=== PATIENT | male | born 1970 | race Caucasian/White ===

== ENCOUNTER → 2019-08-02 | Outpatient (CLI) | payer BC ==
--- NOTE | 2019-08-02 09:00 | Diagnostic Imaging Report ---
PROCEDURE: CT urinary tract, rule out kidney stone. TECHNIQUE: Multiple contiguous axial images were obtained through the abdomen and pelvis without the use of intravenous contrast. Auto Exposure Controls were utilized during the CT exam to meet ALARA standards for radiation dose reduction. All CT scans use one or more of the following dose optimizing techniques: automated exposure control, MA and/or KvP adjustment based on patient size and exam type or iterative reconstruction. INDICATION: Hematuria for five days. Patient has history of kidney stones. COMPARISON: No prior studies are available for comparison. FINDINGS: The lung bases are clear. The liver demonstrates diffuse low density consistent with hepatic steatosis. No discrete liver mass is identified. The gallbladder is unremarkable. No biliary ductal dilatation is identified. The pancreas and spleen are unremarkable. No adrenal mass is detected. The right kidney is unremarkable. Left kidney contains a nonobstructing calculus in the mid region measuring 5 mm. In addition, there is a 4 mm calculus at the left UPJ. No significant hydronephrosis is identified. Bladder is decompressed. No ureteral or bladder calculi are seen. The aorta is non-aneurysmal. The small and large bowel loops are normal caliber. No obstruction is seen. There is no free fluid in the abdomen or pelvis. Prostate is mildly prominent. No definite lymphadenopathy in the abdomen or pelvis is seen. IMPRESSION: 1. Hepatic steatosis. 2. Nonobstructing left renal calculus. There is also a 4 mm calculus at the left UPJ without significant hydronephrosis. No other urinary tract calculi are detected. Dictated by: Dictated on workstation # [id number]
== END ==
LOC: RAD FS 08:02
PROVIDERS: ATTEND Family Medicine
DX: N20.0 Calculus of kidney (principal); N20.1 Calculus of ureter; K76.0 Fatty (change of) liver, not elsewhere classified
CPT/HCPCS: 74176

== ENCOUNTER 2019-10-25 22:57 | Emergency (ER) | payer BC ==
[~2019-10-25] VITALS: Ht 187.9 cm; Wt 95.4 kg
[2019-10-25 23:41] LABS: BACTERIA,URINE NEGATIVE /HPF; BILIRUBIN,URINE NEGATIVE (NEGATIVE); CLARITY,URINE CLOUDY; COLOR,URINE RED; GLUCOSE, URINE (UA) NEGATIVE (NEGATIVE); KETONES,URINE NEGATIVE (NEGATIVE); LEUKOCYTE ESTERASE ,URINE TRACE (NEGATIVE); NITRITE,URINE NEGATIVE (NEGATIVE); PH,URINE 6.5 (5-9); PROTEIN,URINE TRACE (NEGATIVE); RBC,URINE TNTC /HPF
[2019-10-25] MEDS ORDERED: KETOROLAC 30 MG/ML VIAL IVP ONE (23:45)
[2019-10-25] MEDS ORDERED: ONDANSETRON 4 MG/2 ML (SDV) Z0FRAN IVP ONE (23:45)
[2019-10-25] MEDS ORDERED: NS IV 1000 ML 1,000 ML IV SCH (23:45)
[2019-10-25 23:58] LABS: BASOPHILS # (AUTO) 0.1 10^3/uL (0.0-0.1); BASOPHILS % (AUTO) 1 % (0-10); EOSINOPHILS # (AUTO) 0.4 10^3/uL (0.0-0.3); EOSINOPHILS % (AUTO) 5 % (0-10); HEMATOCRIT 42 % (40-54); LYMPHOCYTES # (AUTO) 2.8 X 10^3 (1.0-4.0); LYMPHOCYTES % (AUTO) 38 % (12-44); MEAN CORPUSCULAR HEMOGLOBIN 33 PG (25-34); MEAN CORPUSCULAR HGB CONC 36 G/DL (32-36); MEAN CORPUSCULAR VOLUME 91 FL (80-99); MEAN PLATELET VOLUME 9.1 FL (7.4-10.4); MONOCYTES # (AUTO) 0.7 X 10^3 (0.0-1.0); MONOCYTES % (AUTO) 10 % (0-12); NEUTROPHILS # (AUTO) 3.5 X 10^3 (1.8-7.8); NEUTROPHILS % (AUTO) 46 % (42-75); PLATELET COUNT 275 10^3/uL (130-400); RED CELL DISTRIBUTION WIDTH 11.9 % (10.0-14.5); WHITE BLOOD COUNT 7.5 10^3/uL (4.3-11.0)
[2019-10-26 00:16] LABS: ALANINE AMINOTRANSFERASE 40 U/L (0-55); ALBUMIN 4.3 GM/DL (3.2-4.5); ALKALINE PHOSPHATASE 63 U/L (40-136); BILIRUBIN,TOTAL 0.3 MG/DL (0.1-1.0); BUN/CREATININE RATIO 12; CALCIUM 9.1 MG/DL (8.5-10.1); CARBON DIOXIDE 24 MMOL/L (21-32); CHLORIDE 105 MMOL/L (98-107); CREATININE SERUM 1.22 MG/DL (0.60-1.30); GFR ESTIMATED > 60; GLUCOSE 149 MG/DL (70-105); SODIUM 142 MMOL/L (135-145); TOTAL PROTEIN 6.8 GM/DL (6.4-8.2)
--- OUTSIDE RECORDS SUMMARY | 2019-10-26 00:30 | XMS REPORT | Continuity of Care Document ---
Author Organization Unknown Address Unknown Phone Unavailable Allergies Active Description Code Type Severity Reaction Onset Reported/Identified Relationship to Patient Clinical Status Yes No Known Drug Allergies [id number] Drug Allergy Unknown N/A 10/25/2019 Medications There is no data. Problems Date Dx Coded Attending Type Code Diagnosis Diagnosed By 08/05/2019 COLUMBA MAY, DUNCAN Hahn Ot K76.0 FATTY (CHANGE OF) LIVER, NOT ELSEWHERE C 08/05/2019 COLUMBA MAY, DUNCAN Hahn Ot N20.0 CALCULUS OF KIDNEY 08/05/2019 DUNCAN WATERMAN MD Ot N20.1 CALCULUS OF URETER 08/19/2019 DUNCAN WATERMAN MD Ot K76.0 FATTY (CHANGE OF) LIVER, NOT ELSEWHERE C 08/19/2019 DUNCAN WATERMAN MD Ot N20.0 CALCULUS OF KIDNEY 08/19/2019 DUNCAN WATERMAN MD Ot N20.1 CALCULUS OF URETER Procedures There is no data. Results Test Result Range CULTURE, URINE - 07/29/19 00:00 CULTURE, URINE, ROUTINE SEE NOTE NRG UA W/ MICROSCOPY - 08/21/19 12:59 COLOR TNP NRG COMMENTS NRG CULTURE, URINE - 08/21/19 12:59 CULTURE, URINE, ROUTINE SEE NOTE NRG Complete urinalysis with reflex to cultu re - 10/25/19 23:20 Urine color determination RED NRG Urine clarity determination CLOUDY NR G Urine pH measurement by test strip 6.5 5-9 Specific gravity of urine by test strip 1.020 1.016-1.022 Urine protein assay by test strip, semi-quantitative TRACE NEGATIVE Urine glucose detection by automated test strip NE GATIVE NEGATIVE Erythrocytes detection in urine sediment by light micr oscopy 3+ NEGATIVE Urine ketones detection by automated test strip NE GATIVE NEGATIVE Urine nitrite detection by test strip NEGATIVE NEGATIVE Urine total bilirubin detection by test strip NEGA TIVE NEGATIVE Urine urobilinogen measurement by automated test strip (mass/volume) 0.2 mg/dL < = 1.0 Urine leukocyte esterase detection by dipstick TRA CE NEGATIVE Automated urine sediment erythrocyte cou nt by microscopy (number/high power field) TNTC NRG Automated urine sediment leukocyte count by microscopy (number/high power field) NONE NRG Bacteria detection in urine sediment by light microsco py NEGATIVE NRG Crystals detection in urine sediment by light microsco py NONE NRG Casts detection in urine sediment by light microscopy NONE NRG Mucus detection in urine sediment by light microscopy NEGATIVE NRG Complete urinalysis with reflex to culture YES NRG Complete blood count (CBC) with automate d white blood cell (WBC) differential - 10/25/19 23:50 Blood leukocytes automated count (number/volume) 7.5 10*3/uL 4.3-11.0 Blood erythrocytes automated count (number/volume) 4.61 10*6/uL 4.35-5.85 Venous blood hemoglobin measurement (mass/volume) 15.0 g/dL 13.3-17.7 Blood hematocrit (volume fraction) 42 % 40-54 Automated erythrocyte mean corpuscular volume 91 [ foz_us] 80-99 Automated erythrocyte mean corpuscular h emoglobin (mass per erythrocyte) 33 pg 25-34 Automated erythrocyte mean corpuscular h emoglobin concentration measurement (mass/volume) 36 g/dL 32-36 Automated erythrocyte distribution width ratio 11. 9 % 10.0- 14.5 Automated blood platelet count (count/volume) 275 10*3/uL 130-400 Automated blood platelet mean volume measurement 9.1 [foz_us] 7.4-10.4 Automated blood neutrophils/100 leukocytes 46 % 42-75 Automated blood lymphocytes/100 leukocytes 38 % 12-44 Blood monocytes/100 leukocytes 10 % 0-12 Automated blood eosinophils/100 leukocytes 5 % 0-10 Automated blood basophils/100 leukocytes 1 % 0-10 Blood neutrophils automated count (number/volume) 3.5 10*3 1.8-7.8 Blood lymphocytes automated count (number/volume) 2.8 10*3 1.0-4.0 Blood monocytes automated count (number/volume) 0. 7 10*3 0.0-1.0 Automated eosinophil count 0.4 10*3/uL 0 .0-0.3 Automated blood basophil count (count/volume) 0.1 10*3/uL 0.0-0.1 Comprehensive metabolic panel - 10/25/19 23:50 Serum or plasma sodium measurement (moles/volume) 142 mmol/L 135-145 Serum or plasma potassium measurement (moles/volume) 4.0 mmol/L 3.6-5.0 Serum or plasma chloride measurement (moles/volume) 105 mmol/L 98-107 Carbon dioxide 24 mmol/L 21-32 Serum or plasma anion gap determination (moles/volume) 13 mmol/L 5-14 Serum or plasma urea nitrogen measurement (mass/volume ) 15 mg/dL 7-18 Serum or plasma creatinine measurement (mass/volume) 1.22 mg/dL 0.60-1.30 Serum or plasma urea nitrogen/creatinine mass ratio 12 NRG Serum or plasma creatinine measurement w ith calculation of estimated glomerular filtration rate > NRG Serum or plasma glucose measurement (mass/volume) 149 mg/dL 70-105 Serum or plasma calcium measurement (mass/volume) 9.1 mg/dL 8.5-10.1 Serum or plasma total bilirubin measurement (mass/volu me) 0.3 mg/dL 0.1-1.0 Serum or plasma alkaline phosphatase topher surement (enzymatic activity/volume) 63 U/L 40-136 Serum or plasma aspartate aminotransfera se measurement (enzymatic activity/volume) 25 U/L 5-34 Serum or plasma alanine aminotransferase measurement (enzymatic activity/volume) 40 U/L 0-55 Serum or plasma protein measurement (mass/volume) 6.8 g/dL 6.4-8.2 Serum or plasma albumin measurement (mass/volume) 4.3 g/dL 3.2-4.5 CALCIUM CORRECTED 8.9 mg/dL 8.5-10.1 Encounters ACCT No. Visit Date/Time Discharge Status Pt. Type Provider Facility Loc./Unit Complaint [id number] 08/21/2019 11:00:00 08/21/2019 23:59: 59 CLS Outpatient DUNCAN WATERMAN [facility] [id number] 08/21/2019 11:00:00 Document Registration [id number] 07/29/2019 07:40:00 Document Registration [id number] 08/02/2019 08:02:00 019 23:59:59 CLS Outpatient DUNCAN WATERMAN MD, V [facility] RAD FS KIDNEY STONE [id number] 10/25/2019 22:58:[address] Emergency VICTORINO MAY, CAROL Hahn [facility] ER FS POSS KIDNEY STONES
--- NOTE | 2019-10-26 00:46 | ED Abdominal Pain ---
General Chief Complaint: Abdominal/GI Problems Stated Complaint: POSS KIDNEY STONES Nursing Triage Note: PT. REPORTED HE HAS HAD KIDNEY STONES IN THE PAST. TODAY HIS PAIN STARTED THIS EVENING AND HE HAS HAD BLOOD IN HIS URINE. Sepsis Screen: No Definite Risk History of Present Illness Date Seen by Provider: Oct 26, 2019 Time Seen by Provider: 23:43 Initial Comments Has been problem problems over the last several days seen blood in his urine this morning and then again later in the day has been pushing the fluids in an attempt to wash things through there areno known stones there and he's had problems with kidney stones in the past. Mild nausea no vomiting quite a lot of left flank pain some into the groin initially. No fever question of chills early this evening. Timing/Duration: 1 Week Severity/Quality: Moderate, Sharp, Stabbing Location: Flank (left) Radiation: Groin Activities at Onset: None Modifying Factors: Worsens With Breathing; Improves With Lying down; Worsens With Movement Associated Symptoms: No Chest Pain, No Fatigue, No Nausea/Vomiting Allergies and Home Medications Allergies Coded Allergies: No Known Drug Allergies (Unverified , 10/25/19) Patient Home Medication List Home Medication List Reviewed: Yes Review of Systems Review of Systems Constitutional: chills; No fever EENTM: No Nose Congestion, No Throat Pain Respiratory: Denies Cough, Denies Shortness of Air Cardiovascular: Denies Chest Pain, Denies Irregular Heart Rate Gastrointestinal: Denies Diarrhea; Nausea; Denies Vomiting Genitourinary: Denies Frequency; Hematuria; Denies Pain Musculoskeletal: No muscle pain, No muscle weakness Skin: No lesions, No rash Psychiatric/Neurological: Denies Headache, Denies Numbness, Denies Tingling Past Zbcrowm-Jbrrzd-Ohbvna Hx Past Med/Social Hx: Reviewed Nursing Past Med/Soc Hx Patient Social History Recent Foreign Travel: No Contact w/Someone Who Travel: No Recent Infectious Disease Expo: No Recent Hopitalizations: No Physical Abuse: No Sexual Abuse: No Mistreated: No Fear: No Seasonal Allergies Seasonal Allergies: No Past Medical History Surgeries: No Respiratory: No Cardiac: No Neurological: No Genitourinary: Yes Kidney Stones Gastrointestinal: No Musculoskeletal: No Endocrine: No HEENT: No Cancer: No Psychosocial: No Integumentary: No Blood Disorders: No Physical Exam Vital Signs Vital Signs - First Documented 10/25/19 23:30 Temp 36.7 Pulse 78 Resp 16 B/P (MAP) 169/105 (126) Pulse Ox 100 O2 Delivery Room Air Capillary Refill : Less Than 3 Seconds Height/Weight/BMI Height: '" Weight: lbs. oz. kg; 27.00 BMI Method: General Appearance: WD/WN, moderate distress HEENT: PERRL/EOMI, TMs normal, pharynx normal Neck: non-tender, full range of motion Respiratory: lungs clear, normal breath sounds Cardiovascular: regular rate, rhythm, no murmur Gastrointestinal: normal bowel sounds, soft; No tenderness Extremities: normal range of motion, normal inspection Neurologic/Psychiatric: no motor/sensory deficits, normal mood/affect, oriented x 3 Skin: normal color, warm/dry Progress/Results/Core Measures Results/Orders Lab Results Laboratory Tests Test 10/25/19 23:20 10/25/19 23:50 Range/Units Urine Color RED H Urine Clarity CLOUDY Urine pH 6.5 5-9 Urine Specific [place] 1.020 1.016-1.022 Urine Protein TRACE H NEGATIVE Urine Glucose (UA) NEGATIVE NEGATIVE Urine Ketones NEGATIVE NEGATIVE Urine Nitrite NEGATIVE NEGATIVE Urine Bilirubin NEGATIVE NEGATIVE Urine Urobilinogen 0.2 < = 1.0 MG/DL Urine Leukocyte Esterase TRACE H NEGATIVE Urine RBC (Auto) 3+ H NEGATIVE Urine RBC TNTC H /HPF Urine WBC NONE /HPF Urine Crystals NONE /LPF Urine Bacteria NEGATIVE /HPF Urine Casts NONE /LPF Urine Mucus NEGATIVE /LPF Urine Culture Indicated YES White Blood Count 7.5 4.3-11.0 10^3/uL Red Blood Count 4.61 4.35-5.85 10^6/uL Hemoglobin 15.0 13.3-17.7 G/DL Hematocrit 42 40-54 % Mean Corpuscular Volume 91 80-99 FL Mean Corpuscular Hemoglobin 33 25-34 PG Mean Corpuscular Hemoglobin Concent 36 32-36 G/DL Red Cell Distribution Width 11.9 10.0-14.5 % Platelet Count 275 130-400 10^3/uL Mean Platelet Volume 9.1 7.4-10.4 FL Neutrophils (%) (Auto) 46 42-75 % Lymphocytes (%) (Auto) 38 12-44 % Monocytes (%) (Auto) 10 0-12 % Eosinophils (%) (Auto) 5 0-10 % Basophils (%) (Auto) 1 0-10 % Neutrophils # (Auto) 3.5 1.8-7.8 X 10^3 Lymphocytes # (Auto) 2.8 1.0-4.0 X 10^3 Monocytes # (Auto) 0.7 0.0-1.0 X 10^3 Eosinophils # (Auto) 0.4 H 0.0-0.3 10^3/uL Basophils # (Auto) 0.1 0.0-0.1 10^3/uL Sodium Level 142 135-145 MMOL/L Potassium Level 4.0 3.6-5.0 MMOL/L Chloride Level 105 98-107 MMOL/L Carbon Dioxide Level 24 21-32 MMOL/L Anion Gap 13 5-14 MMOL/L Blood Urea Nitrogen 15 7-18 MG/DL Creatinine 1.22 0.60-1.30 MG/DL Estimat Glomerular Filtration Rate > 60 BUN/Creatinine Ratio 12 Glucose Level 149 H 70-105 MG/DL Calcium Level 9.1 8.5-10.1 MG/DL Corrected Calcium 8.9 8.5-10.1 MG/DL Total Bilirubin 0.3 0.1-1.0 MG/DL Aspartate Amino Transf (AST/SGOT) 25 5-34 U/L Alanine Aminotransferase (ALT/SGPT) 40 0-55 U/L Alkaline Phosphatase 63 40-136 U/L Total Protein 6.8 6.4-8.2 GM/DL Albumin 4.3 3.2-4.5 GM/DL My Orders Orders - CAROL GLEASON JR, MD Cbc With Automated Diff (10/25/19 23:32) Comprehensive Metabolic Panel (10/25/19 23:32) Urinalysis (10/25/19 23:32) Ct Abdomen/Pelvis Wo (10/25/19 23:32) Ns Iv 1000 Ml (Sodium Chloride 0.9%) (10/25/19 23:45) Ketorolac Injection (Toradol Injection) (10/25/19 23:45) Ondansetron Injection (Zofran Injectio (10/25/19 23:45) Urine Culture (10/25/19 23:20) Medications Given in ED Current Medications Medications Dose Ordered Sig/Raquel Route Start Time Stop Time Status Last Admin Dose Admin Ketorolac Tromethamine 30 mg ONCE ONCE IVP 10/25/19 23:45 10/25/19 23:46 DC 10/25/19 23:50 30 MG Ondansetron HCl 4 mg ONCE ONCE IVP 10/25/19 23:45 10/25/19 23:46 DC 10/25/19 23:50 4 MG Vital Signs/I&O 10/25/19 23:30 Temp 36.7 Pulse 78 Resp 16 B/P (MAP) 169/105 (126) Pulse Ox 100 O2 Delivery Room Air Blood Pressure Mean: 126 Progress Progress Note : Time: 01:27 Progress Note Discussed dual stones in the left ureter one stone is 6 x 8 and 1 stone is 4 x 6. At this point feel like they will not pass on their own but he is pain free today renal function is adequate discussed options with him at this time will give him some pain medicines and tamsulosin and send him home if the wheels come off and pain recurs will send him for urologic evaluation over the weekend if pain stays. He is to make an appointment on Monday for the urologist we'll send him to [facility]. Follow-up earlier if necessary Departure Impression Primary Impression: Kidney stone Disposition: HOME, SELF-CARE Condition: Stable Departure-Patient Inst. Referrals: [facility] CONNE[facility] MD Call for appointment Monday a.m. Patient Instructions: Kidney Stones in Adults Scripts Hydrocodone/Acetaminophen (Kermit 7.5-325 Tablet) 1 Each Tablet 1 TAB PO Q6H PRN for PAIN-MODERATE (5-7) MDD 6 TABS, #5 TAB Prov: CAROL GLEASON JR, MD 10/26/19 CAROL GLEASON JR, MD Oct 26, 2019 00:46
[2019-10-26 01:30] VITALS: BP 164/105
[2019-10-26] MEDS ORDERED: HYDR-4227 PO (01:32)
[2019-10-26] MEDS ORDERED: TMSL.4C PO (01:35)
[2019-10-26] MEDS ORDERED: TAMSULOSIN 0.4 MG (FLOMAX) CAP PO SCH (01:45)
[2019-10-26] MEDS ORDERED: RX-HYDROCODONE/APAP 5/325 MG #4 TAB PK PO PRN (01:45)
--- NOTE | 2019-10-26 07:33 | Diagnostic Imaging Report ---
PROCEDURE: CT abdomen and pelvis without contrast. TECHNIQUE: Multiple contiguous axial images were obtained through the abdomen and pelvis without the use of intravenous contrast. Auto Exposure Controls were utilized during the CT exam to meet ALARA standards for radiation dose reduction. INDICATION: Right flank pain. Compared with study 08/02/2019. At the L3-L4 disc space level there is a left ureteral calculus in axial dimension measuring 4.2 mm maximal with a cephalocaudal length of about 8 to 9 mm. More distally a 2nd left ureteral stone is at the level of the L5 inferior endplate measuring 4.1 mm in axial dimension with a longitudinal/cephalocaudal length of 6.5 mm. Beyond that level, the left ureter was decompressed proximally. There was a mild left hydroureteronephrosis and perinephric as well as periureteric edema. No urinoma or fluid collection. No radiodense intrarenal stone found. The right kidney is unobstructed and without stone. Hepatic steatosis is improved in severity when compared to the prior. There is no evidence for pancreatitis. Gallbladder decompressed. There is no stone or biliary dilatation. The remaining abdominal pelvic solid and hollow viscera are unremarkable. IMPRESSION: 1. Two left-sided ureteral stones, dimension and location above result in mild upstream left hydroureteronephrosis, no additional radiodense urolithiasis. 2. Interval reduction in magnitude of fatty infiltration of the liver with no biliary abnormality or acute pancreatic pathology. Dictated by: Dictated on workstation # [id number]
== END 2019-10-26 01:43 | disposition home or self-care (01) ==
LOC: EDUNIT# 22:57 → ER FS 22:58
DX: N20.0 Calculus of kidney (principal)
CPT/HCPCS: 36415; 74176; 80053; 81000; 85025; 87088; 96374; 96375

== ENCOUNTER 2019-11-03 14:50 | Emergency (ER) | payer BC ==
[~2019-11-03] VITALS: Ht 187.9 cm; Wt 95.5 kg
[~2019-11-03 14:50] MED LIST: HYDR-4227 PO; TMSL.4C PO
--- OUTSIDE RECORDS SUMMARY | 2019-11-03 14:55 | XMS REPORT | Continuity of Care Document ---
Author Organization Unknown Address Unknown Phone Unavailable Allergies Active Description Code Type Severity Reaction Onset Reported/Identified Relationship to Patient Clinical Status Yes No Known Medication Allergies Drug N/A N/A Yes No Known Drug Allergies [id number] Drug Allergy Unknown N/A 10/25/2019 Medications There is no data. Problems Date Dx Coded Attending Type Code Diagnosis Diagnosed By 08/05/2019 DUNCAN WATERMAN MD Ot K76.0 FATTY (CHANGE OF) LIVER, NOT ELSEWHERE C 08/05/2019 DUNCAN WATERMAN MD Ot N20.0 CALCULUS OF KIDNEY 08/05/2019 DUNCAN WATERMAN MD Ot N20.1 CALCULUS OF URETER 08/19/2019 DUNCAN WATERMAN MD Ot K76.0 FATTY (CHANGE OF) LIVER, NOT ELSEWHERE C 08/19/2019 DUNCAN WATERMAN MD Ot N20.0 CALCULUS OF KIDNEY 08/19/2019 DUNCAN WATERMAN MD Ot N20.1 CALCULUS OF URETER 10/28/2019 Yaneth Jacinto MD N2 0.0 Kidney stone 10/30/2019 CAROL GLEASON MD Ot N20.0 CALCULUS OF KIDNEY 10/30/2019 CAROL GLEASON MD Ot R10.9 UNSPECIFIED ABDOMINAL PAIN Procedures There is no data. Results Test [...] urinalysis with reflex to culture YES NRG Bacterial urine culture - 10/25/19 23:20 Bacterial urine culture NG NRG Complete blood count (CBC) with automate [...] Status Pt. Type Provider Facility Loc./Unit Complaint [id number] 08/21/2019 11:00:00 08/21/2019 23:59: 59 CLS Outpatient DUNCAN WATERMAN [facility] [id number] 08/21/2019 11:00:00 Document Registration [id number] 07/29/2019 07:40:00 Document Registration [id number] 10/29/2019 14:50:00 ACT Unknown Yaneth Jacinto MD [id number] 10/28/2019 14:25:53 0 18:52:00 DIS Outpatient BRUCE JACINTO [facility] Surgery KIdney Stone [id number] 10/25/2019 22:58:00 020 01:43:00 DIS Outpatient VICTORINO MAY, CAROL Jackman [facility] ER FS POSS KIDNEY STONES [id number] 08/02/2019 08:02:00 019 23:59:59 CLS Outpatient COLUMBA MAY, DUNCAN padilla [facility] RAD FS KIDNEY STONE
--- OUTSIDE RECORDS SUMMARY | 2019-11-03 14:55 | XMS REPORT | Clinical Summary ---
Author Author Admin, Thaddeus MARLEY Organization All Address Unknown Phone Unavailable Allergies, Adverse Reactions, Alerts Allergy Name Reaction Description Start Date Severity Status Pr ovider Allergies Unknown Conditions or Problems Problem Name Problem Code Onset Date Status Entry Date Provider Comment Standard Description Annotate Kidney stone 592.0 Active Yaneth Fisher MD Calculus of kidney Medication List Medication Instructions Start Date Stop Date Generic Name NDC Status Provider Patient Instruction Drug Treatment Unknown - unknown Procedures Code Procedure Name Date Entry Date Standard Desc ription CPT-64968 Abdomen, 1 view 13:08:50 CDT
--- OUTSIDE RECORDS SUMMARY | 2019-11-03 14:55 | XMS REPORT | Clinical Summary ---
Author Author Admin, Thaddeus MARLEY Organization All Address Unknown Phone Unavailable Allergies, Adverse Reactions, Alerts Allergy Name Reaction Description Start Date Severity Status Pr ovider Allergies Unknown Conditions or Problems Problem Name Problem Code Onset Date Status Entry Date Provider Comment Standard Description Annotate Problems Unknown Active Medication List Medication Instructions Start Date Stop Date Generic Name NDC Status Provider Patient Instruction Drug Treatment Unknown - unknown Procedures Code Procedure Name Date Entry Date Standard Desc ription CPT-75038 Abdomen, 1 view 13:08:50 CDT
--- OUTSIDE RECORDS SUMMARY | 2019-11-03 14:55 | XMS REPORT | Clinical Summary ---
[...] Name Date Entry Date Standard Desc ription CPT-81814 Abdomen, 1 view 13:08:50 CDT
--- OUTSIDE RECORDS SUMMARY | 2019-11-03 14:55 | XMS REPORT | Clinical Summary ---
[...] Name Date Entry Date Standard Desc ription CPT-83300 Abdomen, 1 view 13:08:50 CDT
--- OUTSIDE RECORDS SUMMARY | 2019-11-03 14:55 | XMS REPORT | Clinical Summary ---
[...] Name Date Entry Date Standard Desc ription CPT-51893 Abdomen, 1 view 13:08:50 CDT
--- NOTE | 2019-11-03 15:15 | ED Cardiac General ---
History of Present Illness General Chief Complaint: Chest Pain Stated Complaint: CHEST PAIN Source: patient Exam Limitations: no limitations History of Present Illness Date Seen by Provider: Nov 03, 2019 Time Seen by Provider: 14:55 Initial Comments 9-year-old male presents to the emergency room with chest pain for the past day. Patient reports pain started last night it was anterior chest wall with some sense of anxiety. Patient has a history of renal stones and had a ureteral stent placed. Patient was seen on October 24 in the [facility]. He presented with abdominal pain and was found to have ureteral lithiasis. Patient had a left ureteral stone 6 x 8 mm and was felt that this would not pass and the patient was scoped and had a ureteral vesicular stent placed. Patient does not believe his relationship between his chest pain and his ureteral stone. He has no prior cardiac history with the exception of hypertension. He does admit his father had his first UT at the age of 60. Patient denies any pulmonary or GI problems. He has given informed consent for diagnostic and therapeutic services. EKG shows a sinus rhythm with abnormal R- wave progression with transition left ventricular hypertrophy with secondary repolarization abnormality also seen in the lateral leads. Timing/Duration: 24 hours Severity: moderate Location: substernal, central (without radiation) Activities at Onset: activity Prior CP/Workup: no prior chest pain, no prior cardiac workup (recently diagnosed with left ureteral stones and ureteral vesicular stent has been placed patient tolerated the anesthesia without difficulty. Miss eating large amounts of sodium recently with him) NTG SL HAIR BOILER OPERATOR: No (does not present with classic angina) ASA po HAIR BOILER OPERATOR: No (does not present with cla) Associated Systoms: Chest Pain Allergies and Home Medications Allergies Coded Allergies: No Known Drug Allergies (Unverified , 10/25/19) Home Medications Hydrocodone/Acetaminophen 1 Each Tablet, 1 TAB PO Q6H PRN for PAIN-MODERATE (5- 7) Prescribed by: CAROL GLEASON on 10/26/19131 Tamsulosin HCl 0.4 Mg Cap, 0.4 MG PO HS Prescribed by: CAROL GLEASON on 10/26/19134 Patient Home Medication List Home Medication List Reviewed: Yes Review of Systems Review of Systems Constitutional: weakness (weakness with anterior chest wall pain since last night) EENTM: No Symptoms Reported Respiratory: No Symptoms Reported Cardiovascular: See HPI, Chest Pain Gastrointestinal: No Symptoms Reported (minutes eating large amounts of sodium with Ham) Genitourinary: No Symptoms Reported Musculoskeletal: no symptoms reported (anterior chest wall pain) Skin: no symptoms reported Psychiatric/Neurological: Anxiety Endocrine: No Symptoms Reported Hematologic/Lymphatic: No Symptoms Reported Past Vsuzvwb-[id number]-Rrnndd Hx Past Med/Social Hx: Reviewed Nursing Past Med/Soc Hx Patient Social History Recent Hopitalizations: No Seasonal Allergies Seasonal Allergies: No Past Medical History Surgeries: No Respiratory: No Cardiac: No Neurological: No Genitourinary: Yes Kidney Stones Gastrointestinal: No Musculoskeletal: No Endocrine: No HEENT: No Cancer: No Psychosocial: No Integumentary: No Blood Disorders: No Physical Exam Vital Signs Vital Signs - First Documented 11/03/19 14:50 Temp 37.0 Pulse 79 Resp 20 B/P (MAP) 184/102 (129) Pulse Ox 97 O2 Delivery Room Air Capillary Refill : Height, Weight, BMI Height: '" Weight: lbs. oz. kg; 27.00 BMI Method: General Appearance: WD/WN, Moderate Distress, Other (moderate distress secondary to chest wall pain) HEENT: PERRL/EOMI, Normal ENT Inspection, Pharynx Normal, Moist Mucous Membranes Neck: Full Range of Motion, Normal Inspection, Non Tender, Supple Respiratory: Lungs Clear, Normal Breath Sounds, No Accessory Muscle Use, No Respiratory Distress Cardiovascular: Regular Rate, Rhythm, No Edema, No Gallop, No JVD, No Murmur, Normal Peripheral Pulses Gastrointestinal: Normal Bowel Sounds, No Organomegaly, No Pulsatile Mass, Non Tender Genital/Rectal: Other (patient recently had a ureterovesicular stent placed in the left side for a ureteral stone that was estimated not to move) Extremity: Normal Capillary Refill, Normal Inspection, Normal Range of Motion, Non Tender, No Calf Tenderness Neurologic/Psychiatric: Alert, Oriented x3, No Motor/Sensory Deficits, Normal Mood/Affect, internal revenue agent II-XII Norm as Tested Skin: Normal Color, Warm/Dry Lymphatic: No Adenopathy Progress/Results/Core Measures Results/Orders Lab Results Laboratory Tests Test 11/03/19 14:57 11/03/19 15:11 Range/Units White Blood Count 7.9 4.3-11.0 10^3/uL Red Blood Count 5.07 4.35-5.85 10^6/uL Hemoglobin 16.6 13.3-17.7 G/DL Hematocrit 46 40-54 % Mean Corpuscular Volume 90 80-99 FL Mean Corpuscular Hemoglobin 33 25-34 PG Mean Corpuscular Hemoglobin Concent 36 32-36 G/DL Red Cell Distribution Width 11.8 10.0-14.5 % Platelet Count 329 130-400 10^3/uL Mean Platelet Volume 9.3 7.4-10.4 FL Neutrophils (%) (Auto) 58 42-75 % Lymphocytes (%) (Auto) 29 12-44 % Monocytes (%) (Auto) 8 0-12 % Eosinophils (%) (Auto) 4 0-10 % Basophils (%) (Auto) 1 0-10 % Neutrophils # (Auto) 4.6 1.8-7.8 X 10^3 Lymphocytes # (Auto) 2.3 1.0-4.0 X 10^3 Monocytes # (Auto) 0.6 0.0-1.0 X 10^3 Eosinophils # (Auto) 0.3 0.0-0.3 10^3/uL Basophils # (Auto) 0.1 0.0-0.1 10^3/uL Neutrophils % (Manual) 54 % Lymphocytes % (Manual) 31 % Monocytes % (Manual) 7 % Eosinophils % (Manual) 3 % Basophils % (Manual) 1 % Band Neutrophils 4 % Blood Morphology Comment NORMAL Sodium Level 141 135-145 MMOL/L Potassium Level 4.1 3.6-5.0 MMOL/L Chloride Level 104 98-107 MMOL/L Carbon Dioxide Level 22 21-32 MMOL/L Anion Gap 15 H 5-14 MMOL/L Blood Urea Nitrogen 16 7-18 MG/DL Creatinine 0.96 0.60-1.30 MG/DL Estimat Glomerular Filtration Rate > 60 BUN/Creatinine Ratio 17 Glucose Level 119 H 70-105 MG/DL Calcium Level 9.6 8.5-10.1 MG/DL Corrected Calcium 8.5-10.1 MG/DL Magnesium Level 2.4 1.6-2.4 MG/DL Total Bilirubin 0.5 0.1-1.0 MG/DL Aspartate Amino Transf (AST/SGOT) 18 5-34 U/L Alanine Aminotransferase (ALT/SGPT) 31 0-55 U/L Alkaline Phosphatase 74 40-136 U/L Troponin I < 0.30 <0.30 NG/ML Total Protein 7.5 6.4-8.2 GM/DL Albumin 4.6 H 3.2-4.5 GM/DL Urine Color DARK YELLOW Urine Clarity SL CLOUDY Urine pH 5.5 5-9 Urine Specific [place] >=1.030 1.016-1.022 Urine Protein 2+ H NEGATIVE Urine Glucose (UA) NEGATIVE NEGATIVE Urine Ketones NEGATIVE NEGATIVE Urine Nitrite NEGATIVE NEGATIVE Urine Bilirubin NEGATIVE NEGATIVE Urine Urobilinogen 0.2 < = 1.0 MG/DL Urine Leukocyte Esterase 1+ H NEGATIVE Urine RBC (Auto) 3+ H NEGATIVE Urine RBC >100 H /HPF Urine WBC 10-25 H /HPF Urine Squamous Epithelial Cells RARE /HPF Urine Crystals NONE /LPF Urine Bacteria TRACE /HPF Urine Casts NONE /LPF Urine Mucus SMALL H /LPF Urine Culture Indicated YES My Orders Orders - DANIELLE SANCHZE DO Cbc And Manual Diff (11/03/19 15:07) Comprehensive Metabolic Panel (11/03/19 15:07) Magnesium (11/03/19 15:07) Troponin I Fs (11/03/19 15:07) Urinalysis (11/03/19 15:07) Ekg Tracing (11/03/19 15:07) Peripheral Iv Line Care 00,04,08,12,16,20 (11/03/19 15:07) Continuous Ekg Monitoring (11/03/19 15:07) Chest 1 View Ap/Pa Only (11/03/19 15:07) Hemoglobin A1c (11/03/19 15:09) Creatine Kinase Mb (11/03/19 14:57) Urine Culture (11/03/19 15:11) Troponin I Fs (11/03/19 16:31) Vital Signs/I&O 11/03/19 11/03/19 14:50 14:50 Temp 37.0 Pulse 79 Resp 20 B/P (MAP) 184/102 (129) Pulse Ox 97 O2 Delivery Room Air Room Air Progress Progress Note : Time: 16:37 Progress Note From evaluation reveals a hemoglobin of 16.6 WBC 7.9 glucose 119 the UA had over 100 RBCs per high-power field and 1+ leukocyte esterase but the patient does have a left ureteral stent. EKG shows normal sinus rhythm with a rate of 68 he has abnormal R-wave progression with early transition LVH with secondary repolarization changes. Patient has normal troponin we're waiting for the second 2 hour troponin to be returned has been given Protonix 40 mg by mouth and Mylanta. Initial ECG Impression Date: Nov 03, 2019 Initial ECG Impression Time: 14:51 Initial ECG Rate: 68 Initial ECG Rhythm: Normal Sinus (with poor R-wave progression and LVH with secondary repolarization changes) Departure Impression Primary Impression: Chest wall pain Additional Impression: Gastroesophageal reflux disease Disposition: HOME, SELF-CARE Condition: Improved (ERASED) Departure-Patient Inst. Decision time for Depature: 17:35 Referrals: DUNCAN PEDRAZA MD (PCP) Primary Care Physician Patient Instructions: Chest Pain That Is Not Caused by the Heart (DC), Acid Reflux (Gastroesophageal Reflux Disease), Adult (DC) Add. Discharge Instructions: Compressive evaluation shows no evidence of myocardial ischemic disease or damage. Patient's troponin was negative at time one and time 2 hours. Rest of laboratory was essentially negative. The patient had significant improvement with 40 mg of Protonix and 30 mL's of Mylanta. Patient has been advised to stay on a Protonix follow-up with Dr. Duncan Pedraza avoid spicy foods avoid carbonated beverages including beer continue urologic care in regard to his ureterovesicular stent. Understands he needs to be hydrated at all times. All discharge instructions reviewed with patient and/or family. Voiced understanding. Scripts Pantoprazole Sodium (Protonix) 40 Mg Jf. 40 MG PO DAILY for GI Upset for 15 Days, #15 TAB Prov: DANIELLE SANCHEZ DO 11/03/19 Copy Copies To 1: [facility]/DANIELLE NÚÑEZ DO Nov 03, 2019 15:15
--- NOTE | 2019-11-03 15:29 | Diagnostic Imaging Report ---
INDICATION: Chest pain. TECHNIQUE: Single view chest 3:13 PM. CORRELATION STUDY: None FINDINGS: The heart size, mediastinal configuration and pulmonary vascularity are within normal limits. The lungs are clear with no consolidating infiltrate. There is no significant effusion or pneumothorax. IMPRESSION: 1. Negative for acute abnormality of the chest. Dictated by: Dictated on workstation # [id number]
[2019-11-03 15:37] LABS: BASOPHILS # (AUTO) 0.1 10^3/uL (0.0-0.1); BASOPHILS % (AUTO) 1 % (0-10); EOSINOPHILS # (AUTO) 0.3 10^3/uL (0.0-0.3); EOSINOPHILS % (AUTO) 4 % (0-10); HEMATOCRIT 46 % (40-54); HEMOGLOBIN 16.6 G/DL (13.3-17.7); LYMPHOCYTES # (AUTO) 2.3 X 10^3 (1.0-4.0); LYMPHOCYTES % (AUTO) 29 % (12-44); MEAN CORPUSCULAR HEMOGLOBIN 33 PG (25-34); MEAN CORPUSCULAR HGB CONC 36 G/DL (32-36); MEAN CORPUSCULAR VOLUME 90 FL (80-99); MEAN PLATELET VOLUME 9.3 FL (7.4-10.4); MONOCYTES # (AUTO) 0.6 X 10^3 (0.0-1.0); MONOCYTES % (AUTO) 8 % (0-12); NEUTROPHILS # (AUTO) 4.6 X 10^3 (1.8-7.8); NEUTROPHILS % (AUTO) 58 % (42-75); PLATELET COUNT 329 10^3/uL (130-400); RED CELL DISTRIBUTION WIDTH 11.8 % (10.0-14.5); WHITE BLOOD COUNT 7.9 10^3/uL (4.3-11.0)
[2019-11-03 15:38] LABS: BACTERIA,URINE TRACE /HPF; BILIRUBIN,URINE NEGATIVE (NEGATIVE); COLOR,URINE DARK YELLOW; GLUCOSE, URINE (UA) NEGATIVE (NEGATIVE); KETONES,URINE NEGATIVE (NEGATIVE); LEUKOCYTE ESTERASE ,URINE 1+ (NEGATIVE); NITRITE,URINE NEGATIVE (NEGATIVE); PH,URINE 5.5 (5-9); PROTEIN,URINE 2+ (NEGATIVE); RBC,URINE >100 /HPF; SQUAMOUS EPITHELIAL CELL,UR RARE /HPF
[2019-11-03 15:39] LABS: CLARITY,URINE SL CLOUDY
[2019-11-03 15:40] LABS: BUN/CREATININE RATIO 17; CALCIUM 9.6 MG/DL (8.5-10.1); CARBON DIOXIDE 22 MMOL/L (21-32); CHLORIDE 104 MMOL/L (98-107); CREATININE SERUM 0.96 MG/DL (0.60-1.30); GFR ESTIMATED > 60; GLUCOSE 119 MG/DL (70-105); POTASSIUM 4.1 MMOL/L (3.6-5.0); SODIUM 141 MMOL/L (135-145)
[2019-11-03 15:41] LABS: ALANINE AMINOTRANSFERASE 31 U/L (0-55); ALBUMIN 4.6 GM/DL (3.2-4.5); ALKALINE PHOSPHATASE 74 U/L (40-136); BILIRUBIN,TOTAL 0.5 MG/DL (0.1-1.0); MAGNESIUM 2.4 MG/DL (1.6-2.4); TOTAL PROTEIN 7.5 GM/DL (6.4-8.2)
[2019-11-03 15:46] LABS: BAND NEUTROPHILS 4 %; BASOPHILS % (MANUAL) 1 %; EOSINOPHILS % (MANUAL) 3 %; LYMPHOCYTES % (MANUAL) 31 %; MONOCYTES % (MANUAL) 7 %; NEUTROPHILS % (MANUAL) 54 %; RBC MORPH NORMAL
[2019-11-03] MEDS ORDERED: ANTACID SUSP 30 ML UDC (MYLANTA) PO ONE (16:45)
[2019-11-03] MEDS ORDERED: PANTOPRAZOLE 40 MG (PROTONIX) TAB PO ONE ×2 (16:45→16:46)
[2019-11-03] MEDS ORDERED: ANTACID SUSP 30 ML UDC (MYLANTA) ONE (16:46)
[2019-11-03] MEDS ORDERED: PANT40SU PO (17:38)
[2019-11-03 17:41] VITALS: BP 151/100
== END 2019-11-03 17:41 | disposition home or self-care (01) ==
LOC: EDUNIT# 14:50 → ER FS 14:52
DX: R07.89 Other chest pain (principal); K21.9 Gastro-esophageal reflux disease without esophagitis; Z87.442 Personal history of urinary calculi
CPT/HCPCS: 36415; 71045; 80053; 81000; 82553; 83036; 83735; 84484; 85007; 85027; 87088

== ENCOUNTER → 2019-12-06 | Outpatient (CLI) | payer BC ==
[~2019-12-06] MED LIST changes: +CATHETER FLUSH 10 ML SYR IV PRN; +HOLD METFORMIN - RECEIVED CONTRAST 20 ML VIAL IV SCH; +IOHEXOL 350 MG/ML 100 ML (OMNIPAQUE 350) VIAL IV ONE; +NS 100 ML (IVPB) BAG IV ONE; +PANT40SU PO
--- NOTE | 2019-12-06 14:07 | Diagnostic Imaging Report ---
EXAMINATION: CT Abdomen Pelvis with and without intravenous contrast. TECHNIQUE: Precontrast acquisitions were acquired through the abdomen and pelvis. Multiple contiguous axial images were obtained through the abdomen and pelvis after the administration of intravenous contrast. All CT scans use one or more of the following dose optimizing techniques: automated exposure control, MA and/or KvP adjustment based on a patient size and exam type, or iterative reconstruction. HISTORY: Back pain, kidney stone. COMPARISON: 10/25/2019. FINDINGS: Limited views of the lower thorax are unremarkable. Liver is mildly steatotic. No focal liver lesions are seen. There is no biliary ductal dilation. Gallbladder is normal. Pancreas is normal. Spleen is normal. Adrenal glands are normal. The kidneys are normal. There is no hydronephrosis. Urinary bladder is normal. Visualized bowel is normal in caliber without obstruction or inflammation. No free fluid or air. No abdominal or pelvic lymphadenopathy. Aorta is normal in caliber without aneurysm. There are no suspicious osseus lesions. IMPRESSION: 1. No acute abnormality in the abdomen or pelvis. 2. Mild steatosis of the liver. Dictated by: Dictated on workstation # [id number]
== END ==
LOC: RAD FS 12:29
PROVIDERS: ATTEND Family Medicine
DX: N20.0 Calculus of kidney (principal); M54.5 Low back pain; K76.0 Fatty (change of) liver, not elsewhere classified
CPT/HCPCS: 74178

== ENCOUNTER → 2021-02-24 | Outpatient (CLI) | payer SELFPAY ==
[~2021-02-24] MED LIST changes: -CATHETER FLUSH 10 ML SYR IV PRN; -HOLD METFORMIN - RECEIVED CONTRAST 20 ML VIAL IV SCH; -IOHEXOL 350 MG/ML 100 ML (OMNIPAQUE 350) VIAL IV ONE; -NS 100 ML (IVPB) BAG IV ONE
--- NOTE | 2021-02-25 08:52 | Diagnostic Imaging Report ---
INDICATION: Hyperlipidemia and hypertension. No relevant comparison. FINDINGS: There are moderate coronary artery atherosclerotic calcifications. Total Agatston score 234.7. This is predominantly owing to a calcified plaque along the right coronary artery distribution where the score was 209. There is more mild calcified plaque in the LAD distribution with a score of the 25. The overall score is at the 90th percentile for age and gender matched. IMPRESSION: Moderate calcified coronary artery plaque, coronary age is greater than 70 and for age match, the patient is at the 90th percentile. Dictated by: Dictated on workstation # [id number]
== END ==
LOC: RAD FS 08:04
PROVIDERS: ATTEND Family Medicine
DX: I25.10 Atherosclerotic heart disease of native coronary artery without angina pectoris (principal); E78.5 Hyperlipidemia, unspecified; I10 Essential (primary) hypertension
CPT/HCPCS: 75571

== ENCOUNTER → 2021-07-08 | Outpatient (CLI) | payer BC ==
--- NOTE | 2021-07-08 10:15 | Diagnostic Imaging Report ---
EXAMINATION: CT abdomen and pelvis without contrast. TECHNIQUE: Multiple contiguous axial images were obtained through the abdomen and pelvis without the use of intravenous contrast. All CT scans use one or more of the following dose optimizing techniques: automated exposure control, MA and/or KvP adjustment based on patient size and exam type or iterative reconstruction. HISTORY: UPPER ABD PAIN COMPARISON: 12/06/2019 FINDINGS: Lung bases: The lung bases are clear. Solid organs: Diffuse hypoattenuation liver compatible with hepatic steatosis. The gallbladder is normal. There is no biliary ductal dilation. Pancreas is normal. Spleen is normal. Adrenal glands are normal. The kidneys are normal without visualized calculus or hydronephrosis. Bowel: The stomach and small bowel are normal without obstruction. There is scattered colonic diverticulosis. The appendix is normal. Peritoneum: There is no intraperitoneal free fluid or free air. No suspicious lymphadenopathy. Vasculature: Normal without aneurysm. Musculoskeletal: No suspicious osseous lesion or compression fracture. Pelvis: The prostate gland is normal. The urinary bladder is normal. IMPRESSION: 1. No acute abnormality in the abdomen or pelvis. 2. Hepatic steatosis. Dictated by: Dictated on workstation # [id number]
== END ==
LOC: RAD FS 09:27
PROVIDERS: ATTEND Family Medicine
DX: K76.0 Fatty (change of) liver, not elsewhere classified (principal)
CPT/HCPCS: 74176

== ENCOUNTER → 2022-02-15 | Outpatient (CLI) | payer BC ==
--- NOTE | 2022-02-15 15:02 | Diagnostic Imaging Report ---
EXAMINATION: CT abdomen and pelvis without contrast. TECHNIQUE: Multiple contiguous axial images were obtained through the abdomen and pelvis without the use of intravenous contrast. All CT scans use one or more of the following dose optimizing techniques: automated exposure control, MA and/or KvP adjustment based on patient size and exam type or iterative reconstruction. HISTORY: Kidney stone COMPARISON: 07/08/2021 FINDINGS: Lung bases: The lung bases are clear. Solid organs: The liver is normal. The gallbladder is surgically absent. There is no biliary ductal dilation. Pancreas is normal. Spleen is normal. Adrenal glands are normal. There is a nonobstructing left renal calculus measuring up to 0.3 cm. No hydronephrosis. Stable left renal cortical cyst. Bowel: The stomach and small bowel are normal without obstruction. Scattered colonic diverticulosis. The appendix is normal. Peritoneum: There is no intraperitoneal free fluid or free air. No suspicious lymphadenopathy. Vasculature: Normal without aneurysm. Musculoskeletal: No suspicious osseous lesion or compression fracture. Pelvis: The prostate gland is normal. The urinary bladder is normal. IMPRESSION: 1. Nonobstructing left renal calculus measuring up to 0.3 cm. No hydronephrosis. 2. No other acute abnormality in the abdomen or pelvis. Dictated by: Dictated on workstation # [id number]
== END ==
LOC: RAD FS 14:40
PROVIDERS: ATTEND Family Medicine
DX: N20.0 Calculus of kidney (principal)
CPT/HCPCS: 74176